=== PATIENT | male | born 1945 | race Caucasian/White ===

== ENCOUNTER 2023-10-13 16:45 | Inpatient (IN) | payer SELFPAY ==
[2023-10-13] VITALS (14 sets, daily range): BP systolic 123–179; BP diastolic 39–114; PULSE 72–118; RESP 14–22; TEMP 37; O2SAT 96
--- NOTE | 2023-10-13 17:00 | DI.CT_ITS ---
Exam(s) CT ABDOMEN PELVIS W EXAM: CT ABDOMEN PELVIS W CLINICAL HISTORY: patient is yellow, mass in RUQ. TECHNIQUE: Imaging Protocol: Axial computed tomography images with coronal and sagittal reformatted images were created and reviewed CONTRAST MATERIAL: Intravenous: Omnipaque-350 100cc Oral: None COMPARISON: No exams were available for comparison FINDINGS: VISUALIZED LUNG BASES: There moderate size bilateral pleural effusions, right larger than left with s ome atelectasis in the basal segments of both lower lobes evident.. ABDOMEN: There is abundant ascites in the abdomen and pelvis. GI: Lower esophagus and entire stomach wall are significantly-abnormally thickened, possibly diffusel y neoplastic, including linitis plastica. No evidence of small-bowel obstruction. LIVER: The left hepatic lobe appears somewhat enlarged and heterogeneous and with compression-occlusi on of the intrahepatic left portal vein. The middle and right intrahepatic portal veins patent. 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 There are some dilated intrahepatic ducts in the right lobe. Th ere is significant adenopathy in the retroperitoneum including the lesser sac and subhash hepatis and p eriaortic regions. Also retrocrural adenopathy noted on the right side. GALLBLADDER/BILIARY: Mild wall thickening without edema. CBD is not dilated. PANCREAS: Pancreatic body and tail appear unremarkable. There are lymph nodes around the pancreatic head. There does not appear to be a hypodense mass in the pancreatic head itself. SPLEEN: Spleen is not enlarged. No obvious intrasplenic lesions. There appears to be occlusion of t he splenic vein in the region of the splenic vein confluence. ADRENALS: There are adrenal nodules. KIDNEYS:No cysts evident. No solid renal masses. No calculi nor hydronephrosis.. ABDOMINAL AORTA: Calcified-atherosclerotic but not enlarged. There is critical stenosis versus occlu clifford at the origin of the celiac and superior mesenteric arteries. The left common iliac artery is o ccluded at its origin. Flow is reconstituted in the distal half of the left external iliac artery. Atherosclerotic disease evident in the right common iliac artery but without occlusion LYMPH NODES:Positive ucdromswmjdjnik-dhfy-etkqyy adenopathy. ABDOMINAL WALL: No evidence of significant anterior abdominal wall nor inguinal hernia. GI: There is no evidence of bowel obstruction, free air, nor abscess. PELVIS: GI: No evidence of appendicitis.No evidence of sigmoid diverticulitis. LYMPH NODES: There is no intrapelvic nor inguinal adenopathy. REPRODUCTIVE: Mildly low prostate. Seminal vesicles unremarkable. URINARY BLADDER: No calculi nor obvious masses evident OSSEOUS: There is a E nondisplaced fracture of the posterior aspect of the right 9th rib. IMPRESSION: 1. Multilevel ominous findings consistent with diffuse neoplastic disease in the abdomen. There is e xtensive retroperitoneal lymphadenopathy and ascites. 2. 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 Also occlusion of the splenic vein near the portal vein confluence and vascular compression a nd narrowing at multiple levels as described above. 3. Other findings as above. 4. 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 RADIATION OPTIMIZATION: All CT scans at this facility use at least one of these dose optimization te chniques: automated exposure control; mA and/or kV adjustment per patient size (includes targeted exa ms where dose is matched to clinical indication); or iterative reconstruction.
[2023-10-13] MEDS: Lactated Ringers 1,000 ML 1000 ML IV (17:15)
[2023-10-13 17:33] LABS: Abs Immature Grans 0.19 10^3/uL (0.0-0.06); Absolute Monocyte Count 1.41 10^3/uL (0.1-0.8); Basophils % 0.2; HCT 34.6 % (40.0-50.0); HGB 12.4 g/dL (13.5-17.5); Immature Grans % 0.7; Lymphocytes % 1.4; MCH 29.9 pg (27.0-33.0); MCHC 35.8 % (32.0-36.0); MCV 83 fL (80-95); Monocytes % 5.5; Neutrophils % 92.2; Platelet Count 510 10^3/uL (130-400); RBC 4.15 10^6/uL (4.36-5.78); RDW 16.6 % (11.8-14.1)
[2023-10-13 17:46] LABS: Absolute Basophil Count 0.05 10^3/uL (0.0-0.2); Absolute Lymphocyte Count 0.36 10^3/uL (1.2-3.4); Absolute Neutrophil Count 23.61 10^3/uL (1.2-6.7); INR 1.5 (0.9-1.1); PTT Activated 26.2 sec (23.6-32.8); Prothrombin Time 14.4 sec (9.1-11.1)
[2023-10-13 17:50] LABS: Diff Comment Agrees w/ Instrument; WBC 25.61 10^3/uL (4.4-10.8)
[2023-10-13 17:51] LABS: Poikilocytes 1+
[2023-10-13 17:56] LABS: ALT 384 U/L (16-63); AST 416 U/L (15-37); Albumin 2.2 g/dL (3.4-5.0); Anion Gap 10.8 mmol/L (3-11); BUN 19 mg/dL (7-18); CO2 24.2 mmol/L (21.0-32.0); CREATININE 0.7 mg/dL (0.70-1.30); Calcium 8.5 mg/dL (8.5-10.1); Chloride 93 mmol/L (98-107); Estimated GFR 93.73 (mL/min/1.73m2); Glucose 112 mg/dL (74-106); Lipase 66 U/L (16-77); Potassium 4.6 mmol/L (3.5-5.1); Sodium 128 mmol/L (136-145); Total Protein 6.3 g/dL (6.4-8.2)
[2023-10-13 17:57] LABS: Ammonia < 10 umol/L (11-32)
[2023-10-13 18:20] LABS: Alkaline Phosphatase 860 U/L (46-116); Bilirubin, Total 20.6 mg/dL (0.2-1.0); ETHANOL BLOOD < 3.0 mg/dL (<10)
[2023-10-13 18:21] LABS: Bilirubin, Direct 12.2 mg/dL (0.0-0.2)
[2023-10-13] MEDS: Omnipaque 350 MG/ML 100 ML BTL IJ (18:37)
[2023-10-13] MEDS: Normal Saline - Diluent 50 ML VIAL IJ (18:37)
[2023-10-13 18:50] LABS: Clarity Clear (Clear); Specific Gravity 1.025 (1.005-1.025)
[2023-10-13 18:52] LABS: Bacteria Negative HPF (Negative); Crystals Negative HPF (Negative); Epithelial Cells Negative HPF (Negative); Mucus Heavy (Negative); RBC 0-2 HPF (0-2)
[2023-10-13 18:53] LABS: Other Cells Few Transitional (Negative)
[2023-10-13 18:55] LABS: Casts 0-2 Coarse Granular LPF (Negative)
[2023-10-13 19:02] LABS: C & S Indicated? No
--- NOTE | 2023-10-13 19:29 | ED.GENADUL_ITS ---
Discharge Plan Disposition Patient Disposition: Admit to [facility] Condition: Serious Discharge Details Chief Complaint: GenMedical Clinical Impression: Transaminitis, Gastric cancer, Pancreatic cancer, Admission for end of life care, Hyperbilirubinemia Primary Care Provider: None,None ED Provider: Brett Robles Home Meds and New Rx's Prescriptions: No Action No Known Home Meds HPI General Date/Time Provider Initiated Documentation: 10/13/23 17:00 . HPI Narrative: 78-year-old male with no significant past medical history most likely secondary to him not seeing a doctor for years and years. Presents today for evaluation of not being able to sleep well. He states that over the last week or so he has had generalized mild abdominal pain. He does not have any other focal descriptors. He describes it in the epigastric region, it was gradual in onset. He admits to nausea but no vomiting. He denies diarrhea. He does not have much of an appetite. Patient is a tobacco user, he drank alcohol but stopped in 1988. He lives alone and is a self-described hermit. He does have a neighbor, Maria Teresa, who he sees regularly who brought him in today. Related Data Home Medications Medication Instructions Recorded Confirmed Unknown [No Known Home Meds] 10/13/23 10/13/23 Allergies Allergy/AdvReac Type Severity Reaction Status Date / Time No Known Allergies Allergy Unverified 10/13/23 17:00 General Stated Complaint: GenMedical CELE: 3 Review of Systems All systems reviewed & are unremarkable except as noted in HPI and below Exam Narrative Exam Narrative: 1.Const: Thin cachectic and yellow 2.Eyes: PERRL, no conjunctival injection, and symmetrical lids. Scleral icterus 3.ENT: Atraumatic external nose and ears. Dry MM. Neck: Symmetric, trachea midline, No thyromegaly. 4.CVS: +S1/S2, No murmurs or gallops. Peripheral pulses 2+ and equal in all extremities. Brisk capillary refill in all extremities. 5.RESP: Unlabored respiratory effort. Clear to auscultation bilaterally. No wheezes rales or rhonchi 6.GI: Soft, mildly distended, mild epigastric discomfort/tenderness 7.MSK: Normocephalic/Atraumatic, Extremities w/o deformity or ttp No cyanosis or clubbing, Normal movement of all extremities 8.Skin: Warm, Dry. No rashes or lesions. 9.Neuro: worship director II-XII grossly intact. Sensation grossly intact, no focal neurologic deficits. No asterixis 10.Psych: (AAO) x3. Appropriate mood and affect Course Vital Signs Vital signs: Vital Signs Temperature 37 C 10/13/23 16:49 Pulse 106 H 10/13/23 16:49 Respiratory Rate 22 10/13/23 16:49 Blood Pressure 163/114 H 10/13/23 16:49 Pulse Oximetry 96 10/13/23 16:49 Temperature 37 C 10/13/23 17:29 Temperature Source Skin 10/13/23 17:29 Pulse 91 H 10/13/23 18:01 Pulse 97 H 10/13/23 18:01 Respiratory Rate 18 10/13/23 18:01 Respiratory Effort Normal, Non-Labored 10/13/23 17:29 Respiratory Depth Normal 10/13/23 17:29 Respiratory Pattern Normal 10/13/23 17:29 Blood Pressure 147/39 H 10/13/23 18:01 Blood Pressure Mean 79 10/13/23 18:01 Pulse Oximetry 96 10/13/23 17:29 Oxygen Delivery Method Nasal Cannula 10/13/23 17:29 Pain Level 5 10/13/23 17:29 Lab/Test Results Lab/Test Results: 10/13/23 18:32 Urine - Reflex from Ua Urine Culture - Pending Laboratory Tests Range/Units 10/13/23 10/13/23 17:24 18:32 WBC (4.4-10.8) 10^3/uL 25.61 H* RBC (4.36-5.78) 10^6/uL 4.15 L Hgb (13.5-17.5) g/dL 12.4 L Hct (40.0-50.0) % 34.6 L MCV (80-95) fL 83 MCH (27.0-33.0) pg 29.9 MCHC (32.0-36.0) % 35.8 RDW (11.8-14.1) % 16.6 H Plt Count (130-400) 10^3/uL 510 H MPV (8.0-11.0) fL 11.0 Immature Gran % 0.7 Neutrophils % 92.2 Lymphocytes % 1.4 Monocytes % 5.5 Eosinophils % 0.0 Basophils % 0.2 Nucleated RBC % (0.0-0.3) % 0.0 Absolute Neutrophils (1.2-6.7) 10^3/uL 23.61 H Absolute Lymphocytes (1.2-3.4) 10^3/uL 0.36 L Absolute Monocytes (0.1-0.8) 10^3/uL 1.41 H Absolute Eosinophils (0.0-0.7) 10^3/uL 0.00 Absolute Basophils (0.0-0.2) 10^3/uL 0.05 RBC Morphology See Below Poikilocytosis 1+ PT (9.1-11.1) sec 14.4 H INR (0.9-1.1) 1.5 H APTT (23.6-32.8) sec 26.2 Sodium (136-145) mmol/L 128 L Potassium (3.5-5.1) mmol/L 4.6 Chloride (98-107) mmol/L 93 L Carbon Dioxide (21.0-32.0) mmol/L 24.2 Anion Gap (3-11) mmol/L 10.8 BUN (7-18) mg/dL 19 H Creatinine (0.70-1.30) mg/dL 0.7 Est GFR (CKD-EPI 2020) (mL/min/1.73m2) 93.73 Glucose (74-106) mg/dL 112 H Calcium (8.5-10.1) mg/dL 8.5 Total Bilirubin (0.2-1.0) mg/dL 20.6 H Conjugated Bilirubin (0.0-0.2) mg/dL 12.2 H AST (15-37) U/L 416 H ALT (16-63) U/L 384 H Alkaline Phosphatase (46-116) U/L 860 H Ammonia (11-32) umol/L < 10 L Total Protein (6.4-8.2) g/dL 6.3 L Albumin (3.4-5.0) g/dL 2.2 L Lipase (16-77) U/L 66 Urine Color (Yellow) Brown Urine Clarity (Clear) Clear Urine pH (5-8) Ur Specific Dana (1.005-1.025) 1.025 Urine Protein (Neg-Trace) mg/dL Urine Ketones (Negative) mg/dL Urine Blood (Negative) Urine Nitrite (Negative) Urine Bilirubin (Negative) Urine Urobilinogen (Up to 0.2) mg/dL Ur Leukocyte Esterase (Negative) Urine RBC (0-2) HPF 0-2 Urine WBC (0-5) HPF 5-10 Ur Epithelial Cells (Negative) HPF Negative Urine Crystals (Negative) HPF Negative Urine Bacteria (Negative) HPF Negative Urine Casts (Negative) LPF 0-2 Coarse Granular Urine Mucus (Negative) Heavy Urine Other (Negative) Few Transitional Ur Culture Indicated? No Urine Glucose (Negative) mg/dL Ethyl Alcohol (<10) mg/dL < 3.0 Medical Decision Making 78-year-old male with no significant past medical history most likely secondary to him not seeing a doctor for years and years. Presents today for evaluation of not being able to sleep well. He states that over the last week or so he has had generalized mild abdominal pain. He does not have any other focal descriptors. He describes it in the epigastric region, it was gradual in onset. He admits to nausea but no vomiting. He denies diarrhea. He does not have much of an appetite. Patient is a tobacco user, he drank alcohol but stopped in 1988. He lives alone and is a self-described hermit. He does have a neighbor, Maria Teresa, who he sees regularly who brought him in today. Exam demonstrates a cachectic appearing male, notably disheveled, scleral icterus notable jaundice. Mildly distended abdomen and mild epigastric discomfort. Symptoms are clearly concerning for potential malignancy, pancreatic stomach or hepatic. Will evaluate for these etiologies gently rehydrate and treat his pain monitor closely and reassess. 8 PM Laboratory workup shows an elevated white count of 25, hemoglobin of 12, no bandemia, notable left shift. Sodium 128, potassium normal, renal function good. Bilirubin is 20 with a conjugated bili of 12, notable transaminitis, elevated alk phos, normal ammonia and normal lipase level. CT scan shows evidence of multiple severe pathologies, significant cancer of the stomach pancreas and esophagus, biliary complications as well. Uncertain as to what the original etiology is. Severe stenosis of multiple vessels, gallbladder wall thickening, bone metastases, and pleural effusions. Signs and symptoms are concerning for severe cancer and metastatic disease, hepatic and biliary complications, multiple vascular complications. I had a long sitdown conversation with the patient and discussed the findings, potential prognosis, and treatment options. We discussed surgery chemotherapy radiation, likelihood of success, alternative therapies, including but not limited to palliative and hospice care. At this time patient states that I do not want any of those surgeries, I just want pain pills to feel better and to go home. I discussed the case with his friend/neighbor Maria Teresa, she states that he does not have running water, he heats only with wood, but otherwise lives totally alert. At this time we will admit the patient here for pain management, palliative and hospice care consult, and mobilization of resources to facilitate his desire to be at home. Asked the patient where he would prefer to have his life and, and he states that that is home. He does not have children, but he does have 1 sister. He wants to speak with Maria Teresa now currently. I did offer to contacted the hospital engraver ornamental design and he has declined. Discussed the case with the hospitalist Dr. Novak, he agrees with the assessment and plan. I have extensively reviewed the treatment plan with the patient. I have addressed all patient concerns at this time. I have also discussed the plan with the admitting physician and they agree with the current assessment and plan and have agreed to assume responsibility for the patient. All parties demonstrate verbal understanding and agreement with our assessment and plan at this time. The documentation in this chart was dictated using [employer] dictation software. Please excuse any dictation errors. FINDINGS: Lungs: Moderate atelectasis is noted in both lower lobes, right greater than left. Pleural spaces: Moderate pleural effusions layer dependently. Esophagus: Wall thickening is noted in the distal esophagus. Liver: The borders of the liver are smooth. There is decreased enhancement in the left liver, following vascular anatomy. Gallbladder and bile ducts: The gallbladder velez are mildly thickened. There are no calcified stones. The extrahepatic bile ducts are not dilated. Mild intrahepatic biliary ductal dilatation is observed. Pancreas: Mild fat stranding is noted around the pancreas. The pancreatic duct is not dilated. Spleen: The spleen is normal and measures 8.2 cm in length. Adrenal glands: Moderate adrenal hypertrophy is observed. Kidneys and ureters: The kidneys enhance symmetrically. There is no hydronephrosis. There is no renal mass. Mild fat stranding is noted in the perinephric fat spaces. Nodular thickening of the perirenal fascia is observed bilaterally; see customer success representative axial image 33 series 4. The ureters are not dilated. No ureteral stones are observed. Stomach and bowel: Moderate wall thickening is noted in the stomach, primarily in the body of the stomach. Mild fluid and fat stranding noted around the stomach. Wall thickening is noted in the duodenum, with additional fat stranding. Mild wall thickening is present throughout the jejunum and ileum. There is no abnormal small bowel distension. Most of the colon is collapsed, with mild gas and stool scattered in the colon. Wall thickening is observed in the hepatic flexure of the colon. Appendix: The appendix is normal. Intraperitoneal space: Moderate ascites. No abscess. Omental tumor not excluded. Vasculature: There is no portal venous thrombosis. Severe narrowing of the main portal vein is observed in subhash hepatis, constriction from presumed tumor; see axial image 22 series 4. Severe narrowing or occlusion of the left portal vein is observed, likely related to tumor; see axial image 17 series 4. The abdominal aorta is moderately calcified, negative for aneurysm or stenosis. Severe stenosis is observed in the celiac trunk and the superior mesenteric artery, without gross occlusion. Narrowing is suspected in the right renal artery. Moderate plaque is observed in the common iliac arteries. The left common iliac artery is occluded. Proximal left external iliac artery is occluded. Reconstitution is observed in the common femoral artery, likely with retrograde flow into the external iliac artery. Extrinsic compression on the inferior vena cava is noted near the liver; see axial image 24 series 4. Severe stenosis or occlusion of the renal veins is observed at this level. Numerous venous collaterals surround the stomach. Lymph nodes: Multiple enlarged retroperitoneal lymph nodes or other masses are present. Right retrocrural lymphadenopathy is observed. The lymphadenopathy is confluency and difficult to measure. A subhash hepatis lymph node measures 2.1 x 3.6 cm, axial image 23 series 4. An aortocaval lymph node measures 2.2 x 1.6 cm, axial image 26 series 4. Urinary bladder: Unremarkable. Reproductive: Mildly large prostate. Bones/joints: Negative for compression fracture. Multilevel degenerative disc disease and facet arthropathy noted. No specific endplate erosions are observed. No destructive or expansile bony lesions are observed. A sclerotic lesion is noted in the left iliac crest adjacent to the sacroiliac joint, 1.2 cm on axial image 50 series 4. An old partially healed rib fracture is noted at the posterior right 9th rib. Soft tissues: Mild body wall edema. No significant abdominal wall hernia. IMPRESSION: 1. Extensive retroperitoneal lymphadenopathy suspicious for neoplasm. 2. Primary tumor source suspected from the stomach or esophagus. Pancreatic or biliary sources considered. Primary lymphoproliferative disease or other primary tumor sites may be considered. 3. Extrinsic compression causes vascular narrowing at multiple sites. 4. Severe stenosis, celiac trunk. 5. Severe stenosis, superior mesenteric artery. 6. Severe stenosis, inferior vena cava. 7. Severe stenosis or occlusion, right renal vein. 8. Severe stenosis, left renal vein. SHAKIRA KAUFMAN Preliminary Radiology Report EMERGENCY ROOM PHYSICIAN ASSISTANT (QA) DISCREPANCY? If there is a discrepancy between the preliminary and final interpretation, please notify [email or web address] via [email or web address]. If you do not have access to our QA portal, call our QA team at [phone] CONFIDENTIALITY STATEMENT This report is intended only for the use of the referring physician, and only in accordance with law, If you received this in error, call [phone] Page 3 of 3 9. Severe stenosis, main portal vein. 10. Severe stenosis or occlusion, left portal vein. 11. Mild intrahepatic biliary ductal dilatation. Probable tumor compression or involvement of the extrahepatic bile ducts. 12. Moderate arteriosclerotic vascular disease. 13. Occlusion of the left common/external iliac arteries, likely from arteriosclerotic disease. 14. Generalized bowel wall thickening, likely from mesenteric vascular congestion. Enterocolitis considered. 15. Gallbladder wall thickening, likely from vascular congestion. Gallbladder neoplasm may also be considered. 16. Moderate bilateral pleural effusions with atelectasis. 17. Moderate ascites. 18. Possible bone metastasis at the left iliac crest. 19. Additional findings as described. Thank you for allowing us to participate in the care of your patient. Dictated and Authenticated by: Kaleb Doe MD 10/13/2023 7:40 PM Eastern Time ([place] & [place]) Quality:SDOH Health Related Social Needs: Health related social needs inadequate housing PFSH All Active Problems (Updated 10/13/23 @ 20:22 by Brett Robles DO) Hyperbilirubinemia (Acute) Admission for end of life care (Acute) Pancreatic cancer (Acute) Gastric cancer (Acute) Transaminitis (Acute) Social History Smoking/Tobacco Use Status: Former Tobacco Use Smoking risk assessment performed?: Yes Alcohol Intake: former Drug use: Occasionally Substance use type: marijuana
--- NOTE | 2023-10-13 19:41 | DI.VRAD_ITS ---
Addendum created by Kaleb Doe MD on 10/13/2023 7:42:09 PM EDT: Findings were discussed with JENNA OLIVEROS at 10/13/2023 7:30 p.m. EDT. Initial report created on 10/13/2023 7:40:02 PM EDT: PROCEDURE INFORMATION: Exam: CT Abdomen And Pelvis With Contrast Exam date and time: 10/13/2023 6:37 PM Age: 78 years old Clinical indication: Other: Patient is yellow, mass in ruq TECHNIQUE: Imaging protocol: Computed tomography of the abdomen and pelvis with contrast. Contrast material: 350; Contrast volume: 100 ml; Contrast route: INTRAVENOUS (IV); COMPARISON: No relevant prior studies available. FINDINGS: Lungs: Moderate atelectasis is noted in both lower lobes, right greater than left. Pleural spaces: Moderate pleural effusions layer dependently. Esophagus: Wall thickening is noted in the distal esophagus. Liver: The borders of the liver are smooth. There is decreased enhancement in the left liver, following vascular anatomy. Gallbladder and bile ducts: The gallbladder velez are mildly thickened. There are no calcified stones. The extrahepatic bile ducts are not dilated. Mild intrahepatic biliary ductal dilatation is observed. Pancreas: Mild fat stranding is noted around the pancreas. The pancreatic duct is not dilated. Spleen: The spleen is normal and measures 8.2 cm in length. Adrenal glands: Moderate adrenal hypertrophy is observed. Kidneys and ureters: The kidneys enhance symmetrically. There is no hydronephrosis. There is no renal mass. Mild fat stranding is noted in the perinephric fat spaces. Nodular thickening of the perirenal fascia is observed bilaterally; see logistics service representative axial image 33 series 4. The ureters are not dilated. No ureteral stones are observed. Stomach and bowel: Moderate wall thickening is noted in the stomach, primarily in the body of the stomach. Mild fluid and fat stranding noted around the stomach. Wall thickening is noted in the duodenum, with additional fat stranding. Mild wall thickening is present throughout the jejunum and ileum. There is no abnormal small bowel distension. Most of the colon is collapsed, with mild gas and stool scattered in the colon. Wall thickening is observed in the hepatic flexure of the colon. Appendix: The appendix is normal. Intraperitoneal space: Moderate ascites. No abscess. Omental tumor not excluded. Vasculature: There is no portal venous thrombosis. Severe narrowing of the main portal vein is observed in subhash hepatis, constriction from presumed tumor; see axial image 22 series 4. Severe narrowing or occlusion of the left portal vein is observed, likely related to tumor; see axial image 17 series 4. The abdominal aorta is moderately calcified, negative for aneurysm or stenosis. Severe stenosis is observed in the celiac trunk and the superior mesenteric artery, without gross occlusion. Narrowing is suspected in the right renal artery. Moderate plaque is observed in the common iliac arteries. The left common iliac artery is occluded. Proximal left external iliac artery is occluded. Reconstitution is observed in the common femoral artery, likely with retrograde flow into the external iliac artery. Extrinsic compression on the inferior vena cava is noted near the liver; see axial image 24 series 4. Severe stenosis or occlusion of the renal veins is observed at this level. Numerous venous collaterals surround the stomach. Lymph nodes: Multiple enlarged retroperitoneal lymph nodes or other masses are present. Right retrocrural lymphadenopathy is observed. The lymphadenopathy is confluency and difficult to measure. A subhash hepatis lymph node measures 2.1 x 3.6 cm, axial image 23 series 4. An aortocaval lymph node measures 2.2 x 1.6 cm, axial image 26 series 4. Urinary bladder: Unremarkable. Reproductive: Mildly large prostate. Bones/joints: Negative for compression fracture. Multilevel degenerative disc disease and facet arthropathy noted. No specific endplate erosions are observed. No destructive or expansile bony lesions are observed. A sclerotic lesion is noted in the left iliac crest adjacent to the sacroiliac joint, 1.2 cm on axial image 50 series 4. An old partially healed rib fracture is noted at the posterior right 9th rib. Soft tissues: Mild body wall edema. No significant abdominal wall hernia. IMPRESSION: 1. Extensive retroperitoneal lymphadenopathy suspicious for neoplasm. 2. Primary tumor source suspected from the stomach or esophagus. Pancreatic or biliary sources considered. Primary lymphoproliferative disease or other primary tumor sites may be considered. 3. Extrinsic compression causes vascular narrowing at multiple sites. 4. Severe stenosis, celiac trunk. 5. Severe stenosis, superior mesenteric artery. 6. Severe stenosis, inferior vena cava. 7. Severe stenosis or occlusion, right renal vein. 8. Severe stenosis, left renal vein. 9. Severe stenosis, main portal vein. 10. Severe stenosis or occlusion, left portal vein. 11. Mild intrahepatic biliary ductal dilatation. Probable tumor compression or involvement of the extrahepatic bile ducts. 12. Moderate arteriosclerotic vascular disease. 13. Occlusion of the left common/external iliac arteries, likely from arteriosclerotic disease. 14. Generalized bowel wall thickening, likely from mesenteric vascular congestion. Enterocolitis considered. 15. Gallbladder wall thickening, likely from vascular congestion. Gallbladder neoplasm may also be considered. 16. Moderate bilateral pleural effusions with atelectasis. 17. Moderate ascites. 18. Possible bone metastasis at the left iliac crest. 19. Additional findings as described. Dictated and Authenticated by: Kaleb Doe MD. Ordering:KAZ West MD
[2023-10-13] MEDS: MORPHine 4 MG/ML SYR IVP (20:04)
--- NOTE | 2023-10-13 20:24 | W.PM.HP.N ---
Date of service: 10/13/23 Time of Service: 20:24 Assessment and Plan Assessment and plan (1) Abdominal malignancy: Start date: 10/13/23 Status: Acute Assessment and plan: This is a 78-year-old gentleman presenting with abdominal pain and anorexia along with dysphagia for 2 months with his epigastric pain working just after early September when the eclipse of the sun occurred. He has had gradual weight loss and gradual onset of jaundice noticed by his neighbor. He does live alone and is apartment not seen a physician for years. He is on no medical care. Imaging in the ED did reveal a large amount of tumor load in the area of his stomach, esophagus and pancreas as well as gallbladder. He does have obstructive jaundice increased liver function test. He wants no interventions but was willing to stay for gentle IV hydration and pain management. Long-term he wants to be on hospice. This may be a problem but patient lives alone. He is a DNR. Hospice was consulted. (2) Obstructive jaundice due to cancer: Start date: 10/13/23 Status: Acute Assessment and plan: Secondary to significant temporal lobe with metastases to bone as well though is not complaining of bone pain. Pain management and diet as tolerated. Primary most likely is esophagus or stomach but could be pancreas and/or gallbladder. Patient does not want diagnostic testing or intervention. He is clear of mind and is making a thoughtful decision. He is a DNR/DNI. (3) Transaminitis: Start date: 10/13/23 Status: Acute Assessment and plan: Secondary to obstructing tumor. Trend labs though this will be done long-term the patient will be on hospice. (4) Hyponatremia: Start date: 10/13/23 Status: Acute Assessment and plan: IV hydration overnight with medical decision making as to comfort measures and placement for hospice. He may not be able to return home alone unless he has resources with possibly being his neighbor and his sister though he states his sister is not doing well and lives in [place]. He is close to his sister. History of Present Illness History of Present Illness Chief Complaint: Epigastric abdominal pain since early September Narrative: This is a 78-year-old male patient who presented to the ED for that he was not sleeping well because of abdominal pain. After the solar eclipse he began to have epigastric pain which worsened with increasing anorexia. He has been losing weight slowly over the last couple of years with no acceleration according to patient. He lives alone and has not seek medical care and has not seen a physician for years and is on no medical therapy. He does have a neighbor who noticed that he was turning yellow and did prompt him to be evaluated whenever he was having increasing pain. He does have some slight dysphagia for 2 months but no vomiting. His bowels been moving. As stated, he is basically a hermit and has only a neighbor with whom he interacts. He does have a sister who lives in [place] but is not well. He does not wish to not have aggressive medical care with his newfound abdominal mass which is causing his obstructive jaundice and pain. He does wish to be on hospice but lives alone which may be a problem. He is able to give history and is not having any confusion. At the time I saw the patient he was comfortable and not having significant pain. He is a DNR/DNI. Review of Systems Narrative: 13 point review of systems otherwise unrevealing or stable. PFS All Active Problems (Updated 10/13/23 @ 20:28 by Jah Novak) Hyponatremia (Acute) Obstructive jaundice due to cancer (Acute) Abdominal malignancy (Acute) Hyperbilirubinemia (Acute) Admission for end of life care (Acute) Pancreatic cancer (Acute) Gastric cancer (Acute) Transaminitis (Acute) Social History Smoking/Tobacco Use Status: Former Tobacco Use Smoking risk assessment performed?: Yes Alcohol Intake: former Drug use: Occasionally Substance use type: marijuana Housing: house Meds Allergies and Home Medications Allergies Allergy/AdvReac Type Severity Reaction Status Date / Time No Known Allergies Allergy Unverified 10/13/23 17:00 Home Medications Medication Instructions Recorded Confirmed Type Unknown [No Known Home Meds] 10/13/23 10/13/23 History Exam Narrative Exam Narrative: General: Patient appears appropriate for age and is in no acute distress. He is thin and almost cachectic. He is alert and oriented x 3. He did not complain of abdominal pain to the time of my exam. HEENT: Normocephalic, eyes with pupils equal and reactive to light symmetrically, extraocular movement intact and sclera icteric. Oropharynx with dry mucosa and patient is edentulous. Neck: Supple without JVD. Back: Slightly kyphotic without CVA tenderness. Lungs: Bronchovesicular breath sounds diffusely with no focalizing rales or rhonchi. Clear to auscultation with fair aeration. Heart: Regular rate and rhythm with no murmurs or gallops appreciated. Abdomen: Protuberant, soft and no palpable mass or hepatosplenomegaly without guarding or rebound. Bowel sounds positive in all quadrants. Genitalia/rectal: Exam deferred. Extremities: Without clubbing, cyanosis or pitting edema. Fair capillary refill. Skin: Darkly tanned diffusely and diffusely jaundice, rough texture and decreased turgor. Warm and dry. Neuro: Cranial nerves II through XII gross intact, no focal motor deficits and no tremor. Psych: Normal affect and mood. No abnormal thought processes. Remote and recent memory grossly intact. Patient prefers to be alone but seemed comfortable with this lifestyle. Results Imaging Imaging Studies: Exam: CT Abdomen And Pelvis With Contrast Exam date and time: 10/13/2023 6:37 PM Age: 78 years old Clinical indication: Other: Patient is yellow, mass in ruq TECHNIQUE: Imaging protocol: Computed tomography of the abdomen and pelvis with contrast. Contrast material: 350; Contrast volume: 100 ml; Contrast route: INTRAVENOUS (IV); COMPARISON: No relevant prior studies available. FINDINGS: Lungs: Moderate atelectasis is noted in both lower lobes, right greater than left. Pleural spaces: Moderate pleural effusions layer dependently. Esophagus: Wall thickening is noted in the distal esophagus. Liver: The borders of the liver are smooth. There is decreased enhancement in the left liver, following vascular anatomy. Gallbladder and bile ducts: The gallbladder velez are mildly thickened. There are no calcified stones. The extrahepatic bile ducts are not dilated. Mild intrahepatic biliary ductal dilatation is observed. Pancreas: Mild fat stranding is noted around the pancreas. The pancreatic duct is not dilated. Spleen: The spleen is normal and measures 8.2 cm in length. Adrenal glands: Moderate adrenal hypertrophy is observed. Kidneys and ureters: The kidneys enhance symmetrically. There is no hydronephrosis. There is no renal mass. Mild fat stranding is noted in the perinephric fat spaces. Nodular thickening of the perirenal fascia is observed bilaterally; see registered representative axial image 33 series 4. The ureters are not dilated. No ureteral stones are observed. Stomach and bowel: Moderate wall thickening is noted in the stomach, primarily in the body of the stomach. Mild fluid and fat stranding noted around the stomach. Wall thickening is noted in the duodenum, with additional fat stranding. Mild wall thickening is present throughout the jejunum and ileum. There is no abnormal small bowel distension. Most of the colon is collapsed, with mild gas and stool scattered in the colon. Wall thickening is observed in the hepatic flexure of the colon. Appendix: The appendix is normal. Intraperitoneal space: Moderate ascites. No abscess. Omental tumor not excluded. Vasculature: There is no portal venous thrombosis. Severe narrowing of the main portal vein is observed in subhash hepatis, constriction from presumed tumor; see axial image 22 series 4. Severe narrowing or occlusion of the left portal vein is observed, likely related to tumor; see axial image 17 series 4. The abdominal aorta is moderately calcified, negative for aneurysm or stenosis. Severe stenosis is observed in the celiac trunk and the superior mesenteric artery, without gross occlusion. Narrowing is suspected in the right renal artery. Moderate plaque is observed in the common iliac arteries. The left common iliac artery is occluded. Proximal left external iliac artery is occluded. Reconstitution is observed in the common femoral artery, likely with retrograde flow into the external iliac artery. Extrinsic compression on the inferior vena cava is noted near the liver; see axial image 24 series 4. Severe stenosis or occlusion of the renal veins is observed at this level. Numerous venous collaterals surround the stomach. Lymph nodes: Multiple enlarged retroperitoneal lymph nodes or other masses are present. Right retrocrural lymphadenopathy is observed. The lymphadenopathy is confluency and difficult to measure. A subhash hepatis lymph node measures 2.1 x 3.6 cm, axial image 23 series 4. An aortocaval lymph node measures 2.2 x 1.6 cm, axial image 26 series 4. Urinary bladder: Unremarkable. Reproductive: Mildly large prostate. Bones/joints: Negative for compression fracture. Multilevel degenerative disc disease and facet arthropathy noted. No specific endplate erosions are observed. No destructive or expansile bony lesions are observed. A sclerotic lesion is noted in the left iliac crest adjacent to the sacroiliac joint, 1.2 cm on axial image 50 series 4. An old partially healed rib fracture is noted at the posterior right 9th rib. Soft tissues: Mild body wall edema. No significant abdominal wall hernia. IMPRESSION: 1. Extensive retroperitoneal lymphadenopathy suspicious for neoplasm. 2. Primary tumor source suspected from the stomach or esophagus. Pancreatic or biliary sources considered. Primary lymphoproliferative disease or other primary tumor sites may be considered. 3. Extrinsic compression causes vascular narrowing at multiple sites. 4. Severe stenosis, celiac trunk. 5. Severe stenosis, superior mesenteric artery. 6. Severe stenosis, inferior vena cava. 7. Severe stenosis or occlusion, right renal vein. 8. Severe stenosis, left renal vein. 9. Severe stenosis, main portal vein. 10. Severe stenosis or occlusion, left portal vein. 11. Mild intrahepatic biliary ductal dilatation. Probable tumor compression or involvement of the extrahepatic bile ducts. 12. Moderate arteriosclerotic vascular disease. 13. Occlusion of the left common/external iliac arteries, likely from arteriosclerotic disease. 14. Generalized bowel wall thickening, likely from mesenteric vascular congestion. Enterocolitis considered. 15. Gallbladder wall thickening, likely from vascular congestion. Gallbladder neoplasm may also be considered. 16. Moderate bilateral pleural effusions with atelectasis. 17. Moderate ascites. 18. Possible bone metastasis at the left iliac crest. 19. Additional findings as described. Labs 10/13/23 17:24 10/13/23 17:24 Labs: Laboratory Results - last 24 hr 10/13/23 10/13/23 17:24 18:32 WBC 25.61 H* RBC 4.15 L Hgb 12.4 L Hct 34.6 L MCV 83 MCH 29.9 MCHC 35.8 RDW 16.6 H Plt Count 510 H MPV 11.0 Immature Gran % 0.7 Neutrophils % 92.2 Lymphocytes % 1.4 Monocytes % 5.5 Eosinophils % 0.0 Basophils % 0.2 Nucleated RBC % 0.0 Absolute Neutrophils 23.61 H Absolute Lymphocytes 0.36 L Absolute Monocytes 1.41 H Absolute Eosinophils 0.00 Absolute Basophils 0.05 RBC Morphology See Below Poikilocytosis 1+ PT 14.4 H INR 1.5 H APTT 26.2 Sodium 128 L Potassium 4.6 Chloride 93 L Carbon Dioxide 24.2 Anion Gap 10.8 BUN 19 H Creatinine 0.7 Est GFR (CKD-EPI 2020) 93.73 Glucose 112 H Calcium 8.5 Total Bilirubin 20.6 H Conjugated Bilirubin 12.2 H AST 416 H ALT 384 H Alkaline Phosphatase 860 H Ammonia < 10 L Total Protein 6.3 L Albumin 2.2 L Lipase 66 Urine Color Brown Urine Clarity Clear Urine pH Ur Specific [place] 1.025 Urine Protein Urine Ketones Urine Blood Urine Nitrite Urine Bilirubin Urine Urobilinogen Ur Leukocyte Esterase Urine RBC 0-2 Urine WBC 5-10 Ur Epithelial Cells Negative Urine Crystals Negative Urine Bacteria Negative Urine Casts 0-2 Coarse Granular Urine Mucus Heavy Urine Other Few Transitional Ur Culture Indicated? No Urine Glucose Ethyl Alcohol < 3.0 Last Vital Signs Temp 37 C 10/13/23 17:29 Pulse 91 H 10/13/23 18:01 Resp 18 10/13/23 18:01 BP 147/39 H 10/13/23 18:01 Pulse Ox 96 10/13/23 17:29 Time Spent Time spent with Patient: >75 minutes Time was spent: preparing to see the patient(eg.review tests), obtaining and/or reviewing separately otained hiistory, ordering medications,tests, procedures, referring, communicating with other health home care attendant, indepentently interpreting results, counseling the patient and care coordination
[2023-10-13] MEDS: Normal Saline 1,000 ML 125 ML IV (22:16)
[2023-10-13 23:09] LABS: INR 1.4 (0.9-1.1); PTT Activated 26.9 sec (23.6-32.8); Prothrombin Time 13.9 sec (9.1-11.1)
[2023-10-14] VITALS (7 sets, daily range): BP systolic 114–152; BP diastolic 62–84; PULSE 92–123; RESP 11–24; TEMP 35.9–36.7; O2SAT 92–96
[2023-10-14 06:51] LABS: HGB 10.8 g/dL (13.5-17.5); MCH 30.4 pg (27.0-33.0); MCV 85 fL (80-95); MPV 11.1 fL (8.0-11.0); Platelet Count 474 10^3/uL (130-400); RBC 3.55 10^6/uL (4.36-5.78); RDW 17.5 % (11.8-14.1); RDW-SD 48.3 fL; WBC 23.01 10^3/uL (4.4-10.8)
[2023-10-14 06:55] LABS: INR 1.4 (0.9-1.1); Prothrombin Time 14.1 sec (9.1-11.1)
[2023-10-14 07:24] LABS: ALT 356 U/L (16-63); AST 370 U/L (15-37); Albumin 1.8 g/dL (3.4-5.0); Alkaline Phosphatase 878 U/L (46-116); Anion Gap 9.1 mmol/L (3-11); BUN 18 mg/dL (7-18); CO2 24.9 mmol/L (21.0-32.0); CREATININE 0.6 mg/dL (0.70-1.30); Calcium 7.9 mg/dL (8.5-10.1); Chloride 96 mmol/L (98-107); Glucose 90 mg/dL (74-106); Potassium 4.5 mmol/L (3.5-5.1); Sodium 130 mmol/L (136-145); Total Protein 5.4 g/dL (6.4-8.2)
--- NOTE | 2023-10-14 08:43 | INITIAL_ITS ---
Date of service: 10/14/23 Care Management Initial Assmt Initial Assessment REASON FOR HOSPITALIZATION:: Abdominal malignancy with obstructive jaundice PREVIOUS FUNCTIONAL STATUS/SOCIAL/FAMILY SUPPORTS:: Juve lives in [facility] where he has lived in his home for 30 years but 50 years in the same area. He has a friend Maria Teresa who is his neighbor for the last 30 years. He has a sister who he is two years apart in age with that he stays connected to by writing letters and talking on the phone. She lives in [place]. Juve does not receive any community services and is independent at baseline. He is able to perform all of his own ADLs. CURRENT FUNCTIONAL STATUS:: Juve was lying in bed when meeting with CM. He reports his neighbor Maria Teresa brought him into the hospital as she was concerned about him and often checks up on him. He reports receiving a call from his sister this morning. He shares he looks forward to knowing what is going on with consults that were ordered and hoped to hear today. CM called Hospice and messaged Palliative Care for consult. ADVANCE DIRECTIVES:: None on file Has patient been provided with info about the portal/API?: Yes Did the patient sign up for the portal?: No CODE STATUS:: DNR/DNI INSURANCE COVERAGE / FINANCIAL ISSUES:: Self Pay CURRENT HOME/COMMUNITY SERVICES/EQUIPMENT:: None PRIMARY CARE PHYSICIAN:: No PCP PATIENT/FAMILY EDUCATION NEEDS:: Review discharge instructions, discussion of Ask Me Three ANTICIPATED BARRIERS TO DISCHARGE:: Home on Hospice no caregiver at home TRANSPORTATION:: Via private vehicle by family PLAN:: Juve will discharge home when medically cleared. He will transport via private vehicle by family. He will be assigned a T-Doc upon discharge for follow up care. CM will continue to follow to assess care needs and assist in coordination of services with Hospice and Palliative Care. PFSH All Active Problems (Updated 10/16/23 @ 08:38 by Alexandra Herndon MD, [place]) Counseling regarding advanced care planning and goals of care (Acute) Ascites, malignant (Acute) Leukocytosis, unspecified (Acute) Hyponatremia (Acute) Obstructive jaundice due to cancer (Acute) Abdominal malignancy (Acute) Hyperbilirubinemia (Acute) Admission for end of life care (Acute) Pancreatic cancer (Acute) Gastric cancer (Acute) Transaminitis (Acute) Social History Smoking/Tobacco Use Status: Former Tobacco Use Smoking risk assessment performed?: Yes Alcohol Intake: former Drug use: Occasionally Substance use type: marijuana Housing: house SDOH(Care Management) Screening Will the Patient Participate in the Screening?: Yes Do you worry about having a steady place to live?: no Problems where you live: no known problems In the past 12 months, have you had to go without electric, gas, oil or water in your home?: no Have you or anyone in your house had to go without enough food to eat?: no Has lack of transportation kept you from medical appointments or from doing things needed for daily living?: no Has anyone in your support network made you feel unsafe for any reason?: no Social Determinants of Health Comments(SDOH Details): Patient has limited running water and plumbing; patient states has electricity, running water in basement with drainage. Patient uses wood for heat and goes grocery shopping with neighbor Oreland. Health Related Social Needs Health related social needs details: Patient states he gave up his license a few years ago due to impaired vision and failing health. Patient is in the process of filling out living will
[2023-10-14] MEDS: Normal Saline 1,000 ML 125 ML IV ×2 (10:03→20:30)
[2023-10-14] MEDS: MORPHine 4 MG/ML SYR IVP ×5 (14:15→22:48)
--- NOTE | 2023-10-14 14:32 | PGE_ITS ---
Date of Service Date of service: 10/14/23 Time of Service: 14:32 Assessment and Plan Assessment and plan (1) Abdominal malignancy: Status: Acute Assessment and plan: likely GI malignancy either gastric or esophageal but I would a favor gastric w/ local invasion of liver causing obstructive jaundice, also w/ adrenal and bone mets (left iliac); no tumor seen in the pancreas itself. patient wants symptom control but not interested in cancer treatment. morphine ordered by the admitting hospitalist, I have added APAP to his regimen for more mild pain but have to use cautiously given his liver abnormalities. I have ordered compazine for his nausea. I have requested palliative care consult and Dr. Novak has requested hospice consult as well, although the patient lives on his own w/ no local family support. (2) Obstructive jaundice due to cancer: Status: Acute (3) Leukocytosis, unspecified: Status: Acute Assessment and plan: likely reactive leukocytosis from his cancer, no fevers and no evidence for acute infection Qualifiers: Leukocytosis type: unspecified Qualified Code(s): D72.829 - Elevated white blood cell count, unspecified (4) Hyponatremia: Status: Acute Assessment and plan: being corrected w/ NS iv fluids., monitor labs (5) Ascites, malignant: Status: Acute Subjective Subjective Interval history since last seen: Juve presented last night to the ED d/t abdominal pain, nausea and poor appetite. Patient has not seen any medical providers in years. His neighbor convinced him to come to the E.D. last night as the patient has not been able to keep down any food. Evaluation in the ED revealed him to be jaundiced and icteric w/ abdominal distension. Workup included routine labs including CMP, CBC, prothrombin time, activated PTT, UA. This demonstrated leukocytosis of 24,000, mild NC/NC anemia Hb 12.4, platelets 510,000, hyponatremia 128, and elevated LFT: AST 416, ALT 384, alk phosphatase 860, total bilirubin 20.6, direct bili 12.2, total protein 6.3, albumin 2.2, ammonia level <10, protime 14.4 w/ INR 1.5, aPTT 26.2, lipase normal at 66. Imaging included CT abdomen and pelvis demonstrated diffuse thickening of the entire stomach wall and lower esophagus w/ a mass in the left lobe of the liver, adrenal mets and multiple retroperitoneal adenopathy and ascites. 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 He also has occlusion of the splenic vein. Per Dr. Novak' interview w/ the patient, the patient does not want to pursue cancer workup or treatment. He is here for pain control. Hospice and palliative care will be requested. Exam Narrative Exam Narrative: Mr. Shaffer is very jaundiced, icteric, he is alert, nursing had me come see him urgently as he allegedly had emesis of blood. However this was not witnessed by anyone and when the patient was questioned about this he says that he had a red popcicle and he threw this up. HEENT: jaundices and icteric, oropharynx: tongue has red appearance to the surface but I saw no clots or acute blood, although I noted on his gown he had a bright red stain on the upper part of his top gown. I could not tell for certain if this was blood. I did not see any epistaxis Lungs: clear anteriorly Heart: RRR Abdomen: distended, firm but not rigid, + fluid wave, no rebound tenderness or guarding but he does note some mild abdominal pain w/ palpation over the RUQ and epigastrium, liver is palpably enlarged. Extremities: no cyanosis, skin is jaundiced, no peripheral edema Objective Last Vital Signs Temp 36.4 C L 10/14/23 11:06 Pulse 98 H 10/14/23 11:06 Resp 18 10/14/23 11:06 BP 152/76 H 10/14/23 11:06 Pulse Ox 94 10/14/23 11:06 Laboratory Results - last 24 hr 10/13/23 10/13/23 10/13/23 17:24 18:32 22:43 WBC 25.61 H* RBC 4.15 L Hgb 12.4 L Hct 34.6 L MCV 83 MCH 29.9 MCHC 35.8 RDW 16.6 H Plt Count 510 H MPV 11.0 Immature Gran % 0.7 Neutrophils % 92.2 Lymphocytes % 1.4 Monocytes % 5.5 Eosinophils % 0.0 Basophils % 0.2 Nucleated RBC % 0.0 Absolute Neutrophils 23.61 H Absolute Lymphocytes 0.36 L Absolute Monocytes 1.41 H Absolute Eosinophils 0.00 Absolute Basophils 0.05 RBC Morphology See Below Poikilocytosis 1+ PT 14.4 H 13.9 H INR 1.5 H 1.4 H APTT 26.2 26.9 Sodium 128 L Potassium 4.6 Chloride 93 L Carbon Dioxide 24.2 Anion Gap 10.8 BUN 19 H Creatinine 0.7 Est GFR (CKD-EPI 2020) 93.73 Glucose 112 H Calcium 8.5 Total Bilirubin 20.6 H Conjugated Bilirubin 12.2 H AST 416 H ALT 384 H Alkaline Phosphatase 860 H Ammonia < 10 L Total Protein 6.3 L Albumin 2.2 L Lipase 66 Urine Color Brown Urine Clarity Clear Urine pH Ur Specific Paden 1.025 Urine Protein Urine Ketones Urine Blood Urine Nitrite Urine Bilirubin Urine Urobilinogen Ur Leukocyte Esterase Urine RBC 0-2 Urine WBC 5-10 Ur Epithelial Cells Negative Urine Crystals Negative Urine Bacteria Negative Urine Casts 0-2 Coarse Granular Urine Mucus Heavy Urine Other Few Transitional Ur Culture Indicated? No Urine Glucose Ethyl Alcohol < 3.0 10/14/23 06:30 WBC 23.01 H RBC 3.55 L Hgb 10.8 L Hct 30.0 L MCV 85 MCH 30.4 MCHC 36.0 RDW 17.5 H Plt Count 474 H MPV 11.1 H Immature Gran % Neutrophils % Lymphocytes % Monocytes % Eosinophils % Basophils % Nucleated RBC % Absolute Neutrophils Absolute Lymphocytes Absolute Monocytes Absolute Eosinophils Absolute Basophils RBC Morphology Poikilocytosis PT 14.1 H INR 1.4 H APTT Sodium 130 L Potassium 4.5 Chloride 96 L Carbon Dioxide 24.9 Anion Gap 9.1 BUN 18 Creatinine 0.6 L Est GFR (CKD-EPI 2020) 98.20 Glucose 90 Calcium 7.9 L Total Bilirubin 18.0 H Conjugated Bilirubin AST 370 H ALT 356 H Alkaline Phosphatase 878 H Ammonia Total Protein 5.4 L Albumin 1.8 L Lipase Urine Color Urine Clarity Urine pH Ur Specific Paden Urine Protein Urine Ketones Urine Blood Urine Nitrite Urine Bilirubin Urine Urobilinogen Ur Leukocyte Esterase Urine RBC Urine WBC Ur Epithelial Cells Urine Crystals Urine Bacteria Urine Casts Urine Mucus Urine Other Ur Culture Indicated? Urine Glucose Ethyl Alcohol Time Spent with Patient Time Spent with Patient: 35-49 minutes Time was spent: preparing to see the patient(eg.review tests), ordering medications,tests, procedures, referring, communicating with other health manager managed care, indepentently interpreting results, counseling the patient and care coordination
[2023-10-14] MEDS: Ondansetron 4 MG/2 ML VIAL IVP (14:40)
[2023-10-14] MEDS: Pantoprazole 40 MG VIAL IVP (14:47)
[2023-10-14] MEDS: Normal Saline Flush 10 ML SYR IVP ×2 (14:47→20:29)
[2023-10-14 17:22] LABS: Abs Immature Grans 0.24 10^3/uL (0.0-0.06); HCT 27.1 % (40.0-50.0); HGB 9.6 g/dL (13.5-17.5); MCH 30.2 pg (27.0-33.0); MCHC 35.4 % (32.0-36.0); MCV 85 fL (80-95); MPV 10.7 fL (8.0-11.0); Platelet Count 476 10^3/uL (130-400); RBC 3.18 10^6/uL (4.36-5.78); RDW 17.8 % (11.8-14.1); RDW-SD 49.8 fL
[2023-10-14 17:30] LABS: WBC 26.43 10^3/uL (4.4-10.8)
[2023-10-14 17:45] LABS: Absolute Lymphocyte Count 0.26 10^3/uL (1.2-3.4); Absolute Monocyte Count 0.53 10^3/uL (0.1-0.8); Absolute Neutrophil Count 25.64 10^3/uL (1.2-6.7)
[2023-10-14 17:46] LABS: Diff Comment Manual Differential; Poikilocytes 1+; Polychromasia Present
[2023-10-14] MEDS: Prochlorperazine 10 MG/2 ML VIAL 5 MG IVP (20:29)
[2023-10-15 03:09] VITALS: BP 140/76; PULSE 105; RESP 24; TEMP 36.7; O2SAT 96
[2023-10-15] MEDS: MORPHine 4 MG/ML SYR IVP ×2 (03:22→05:48)
[2023-10-15] MEDS: Ondansetron 4 MG/2 ML VIAL IVP (03:22)
[2023-10-15] MEDS: Normal Saline 1,000 ML 125 ML IV ×2 (05:43→13:32)
[2023-10-15] MEDS: Pantoprazole 40 MG VIAL IVP ×2 (05:47→17:19)
[2023-10-15] MEDS: Prochlorperazine 10 MG/2 ML VIAL 5 MG IVP (05:49)
[2023-10-15 07:19] LABS: Abs Immature Grans 0.36 10^3/uL (0.0-0.06); Absolute Basophil Count 0.05 10^3/uL (0.0-0.2); Absolute Neutrophil Count 23.37 10^3/uL (1.2-6.7); Basophils % 0.2; HCT 24.7 % (40.0-50.0); HGB 8.8 g/dL (13.5-17.5); Immature Grans % 1.4; Lymphocytes % 1.9; MCH 31.2 pg (27.0-33.0); MCHC 35.6 % (32.0-36.0); MCV 88 fL (80-95); MPV 12.1 fL (8.0-11.0); Monocytes % 7.3; Neutrophils % 89.2; Nucleated RBC 0.1 % (0.0-0.3); Platelet Count 470 10^3/uL (130-400); RBC 2.82 10^6/uL (4.36-5.78); RDW 18.6 % (11.8-14.1); RDW-SD 52.5 fL
[2023-10-15 07:22] VITALS: BP 151/70; PULSE 103; RESP 16; TEMP 36.7; O2SAT 92
[2023-10-15 07:43] LABS: ALT 524 U/L (16-63); Albumin 1.7 g/dL (3.4-5.0); Alkaline Phosphatase 896 U/L (46-116); Anion Gap 11.5 mmol/L (3-11); BUN 32 mg/dL (7-18); CO2 21.5 mmol/L (21.0-32.0); CREATININE 1.1 mg/dL (0.70-1.30); Calcium 7.9 mg/dL (8.5-10.1); Chloride 100 mmol/L (98-107); Estimated GFR 68.29 (mL/min/1.73m2); Glucose 136 mg/dL (74-106); Potassium 5.1 mmol/L (3.5-5.1); Sodium 133 mmol/L (136-145)
[2023-10-15 07:49] LABS: AST 836 U/L (15-37)
[2023-10-15 07:50] LABS: Bilirubin, Total 16.5 mg/dL (0.2-1.0)
[2023-10-15 07:54] LABS: Absolute Monocyte Count 1.91 10^3/uL (0.1-0.8); Diff Comment Diff Reviewed; Stomatocytes 2+
[2023-10-15 11:57] VITALS: BP 121/71; PULSE 104; RESP 18; TEMP 36.7; O2SAT 92
[2023-10-15 15:34] VITALS: BP 110/63; PULSE 94; RESP 18; TEMP 36.8; O2SAT 91
--- NOTE | 2023-10-15 16:46 | PGE_ITS ---
Date of Service Date of service: 10/15/23 Time of Service: 16:46 Assessment and Plan Assessment and plan (1) Abdominal malignancy: Status: Acute Assessment and plan: likely GI malignancy either gastric or esophageal but I would a favor gastric w/ local invasion of liver causing obstructive jaundice, also w/ adrenal and bone mets (left iliac); no tumor seen in the pancreas itself. patient wants symptom control but not interested in cancer treatment. continue analgesic control of his pain Will have palliative care and hospice to consult on him tomorrow. I talked to his neighbor Maria Teresa Pack, she and her son and his sister are willing to stay with him in his home until the end. Therefore, it would be reasonable for hospice to consult and follow along as outpatient. (2) Obstructive jaundice due to cancer: Status: Acute (3) Leukocytosis, unspecified: Status: Acute Assessment and plan: likely reactive leukocytosis from his cancer, no fevers and no evidence for acute infection Qualifiers: Leukocytosis type: unspecified Qualified Code(s): D72.829 - Elevated white blood cell count, unspecified (4) Hyponatremia: Status: Acute Assessment and plan: being corrected w/ NS iv fluids., monitor labs (5) Ascites, malignant: Status: Acute Subjective Subjective Interval history since last seen: Patient states that he has no pain. No nausea. His neighbor (Maria Teresa Pack) was here visiting him. She would like to be here when hospice and/or palliative care meet w/ him tomorrow. Exam Narrative Exam Narrative: Juve remains jaundice, icteric, he is in no acute distress, not dyspneic He says that he has been drinking but not really eating much Lungs: clear Heart: RRR Abdomen: distended but nontender, palpably enlarged liver extremities: no edema Objective Last Vital Signs Temp 36.8 C 10/15/23 15:34 Pulse 94 H 10/15/23 15:34 Resp 18 10/15/23 15:34 BP 110/63 10/15/23 15:34 Pulse Ox 91 L 10/15/23 15:34 Laboratory Results - last 24 hr 10/14/23 10/14/23 10/15/23 17:15 Unknown 06:25 WBC 26.43 H* Cancelled 26.20 H* RBC 3.18 L Cancelled 2.82 L Hgb 9.6 L Cancelled 8.8 L Hct 27.1 L Cancelled 24.7 L MCV 85 Cancelled 88 MCH 30.2 Cancelled 31.2 MCHC 35.4 Cancelled 35.6 RDW 17.8 H Cancelled 18.6 H Plt Count 476 H Cancelled 470 H MPV 10.7 Cancelled 12.1 H Immature Gran % 0.0 1.4 Neutrophils % 97.0 89.2 Lymphocytes % 1.0 1.9 Monocytes % 2.0 7.3 Eosinophils % 0.0 0.0 Basophils % 0.0 0.2 Nucleated RBC % 0.0 0.1 Absolute Neutrophils 25.64 H 23.37 H Absolute Lymphocytes 0.26 L 0.50 L Absolute Monocytes 0.53 1.91 H Absolute Eosinophils 0.00 0.00 Absolute Basophils 0.00 0.05 RBC Morphology See Below See Below Polychromasia Present Poikilocytosis 1+ Stomatocytes 2+ Sodium 133 L Potassium 5.1 Chloride 100 Carbon Dioxide 21.5 Anion Gap 11.5 H BUN 32 H Creatinine 1.1 Est GFR (CKD-EPI 2020) 68.29 Glucose 136 H Calcium 7.9 L Total Bilirubin 16.5 H AST 836 H ALT 524 H Alkaline Phosphatase 896 H Total Protein 5.0 L Albumin 1.7 L Time Spent with Patient Time Spent with Patient: <25 minutes Time was spent: preparing to see the patient(eg.review tests), referring, communicating with other health anesthesiologist and critical care, counseling the patient and care coordination
[2023-10-15 19:37] VITALS: BP 143/66; PULSE 107; RESP 16; TEMP 36.8; O2SAT 91
[2023-10-15 23:07] VITALS: BP 117/72; PULSE 109; RESP 16; TEMP 37; O2SAT 93
[2023-10-16 03:42] VITALS: BP 129/77; PULSE 94; RESP 16; TEMP 37; O2SAT 91
[2023-10-16] MEDS: Normal Saline 1,000 ML 80 ML IV (04:24)
[2023-10-16] MEDS: MORPHine 4 MG/ML SYR IVP ×2 (05:21→21:47)
[2023-10-16] MEDS: Normal Saline Flush 10 ML SYR IVP ×2 (05:21→21:46)
[2023-10-16] MEDS: Pantoprazole 40 MG VIAL IVP ×2 (05:21→17:55)
[2023-10-16] MEDS: Ondansetron 4 MG/2 ML VIAL IVP (05:21)
--- NOTE | 2023-10-16 08:38 | W.PALLCONSUL ---
Date of service: 10/16/23 Time of Service: 08:38 History of Present Illness History of Present Illness Chief Complaint: Feels fine, wants to sleep Narrative: 78-year-old man who presented to the ER with weight loss and abdominal pain found to have extensive tumor load in his abdominal viscera. He does not want interventions. He would like to go on hospice. He would like to talk to people about hospice but does not feel up to it at the present time Assessment and Plan Assessment and plan (1) Counseling regarding advanced care planning and goals of care: Status: Acute Assessment and plan: Juve states that he is feeling okay right now. His pain is well-managed. He mostly wants to get back to sleep. I have communicated with JULIETTE Finley NP about seeing him later today. Per nursing his friends will be there and wanted to be there for end-of-life discussions. PFSH All Active Problems (Updated 10/17/23 @ 07:21 by Juliette Finley NP) Uninsured (Acute) Palliative care patient (Acute) Cancer related pain (Acute) Deficit in activities of daily living (ADL) (Acute) Encounter for hospice care (Acute) Physician orders for life-sustaining treatment (POLST) form indicates patient wish for [id number] status (Acute) Advance care planning (Acute) Counseling regarding advanced care planning and goals of care (Acute) Ascites, malignant (Acute) Leukocytosis, unspecified (Acute) Hyponatremia (Acute) Obstructive jaundice due to cancer (Acute) Abdominal malignancy (Acute) Hyperbilirubinemia (Acute) Admission for end of life care (Acute) Pancreatic cancer (Acute) Gastric cancer (Acute) Transaminitis (Acute) Social History Smoking/Tobacco Use Status: Former Tobacco Use Smoking risk assessment performed?: Yes Alcohol Intake: former Drug use: Occasionally Substance use type: marijuana Housing: house Exam Narrative Exam Narrative: Cachectic appearing man who was cooperative but again expressed that he wanted to go back to sleep. Results Last Vital Signs Temp 98.6 F 10/16/23 03:42 Pulse 94 H 10/16/23 03:42 Resp 16 10/16/23 03:42 BP 129/77 10/16/23 03:42 Pulse Ox 91 L 10/16/23 03:42 Labs 10/15/23 06:25 10/15/23 06:25 Labs: MPRESSION: 1. Multilevel ominous findings consistent with diffuse neoplastic disease in the abdomen. There is extensive retroperitoneal lymphadenopathy and ascites. 2. 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 Also occlusion of the splenic vein near the portal vein confluence and vascular compression and narrowing at multiple levels as described above. 3. Other findings as above. 4. 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
[2023-10-16 08:40] VITALS: BP 131/65; PULSE 95; RESP 19; TEMP 36.7; O2SAT 91
[2023-10-16] MEDS: Protein Nutritional Supplement 16 GM 1 OUNCE PACKET PO ×3 (08:47→21:46)
[2023-10-16 11:32] VITALS: BP 127/78; PULSE 97; RESP 18; TEMP 36.4; O2SAT 94
--- NOTE | 2023-10-16 11:58 | CMPROGNOTE_ITS ---
Date of service: 10/16/23 Care Management Progress Note Progress Note Text Progress Note Text: S/O: CM assisted in coordination of Palliative Care consult with Maria Teresa. Maria Teresa shared that Rene sister Heather who lives in [place], intends to arrive tomorrow. Alecia from [facility] updated CM that a Medicaid application has been submitted and [facility] new patient application is currently being worked on. CM following as well. A: Juve is a 78 year old admitted to [facility] 10/13/23. P: Juve will discharge home when medically cleared. He will transport via private vehicle by family. He will be assigned a T-Doc upon discharge for follow up care. CM will continue to follow to assess care needs and assist in coordination of services with Hospice and Palliative Care. SDOH(Care Management) Screening Will the Patient Participate in the Screening?: Yes Do you worry about having a steady place to live?: no Problems where you live: no known problems In the past 12 months, have you had to go without electric, gas, oil or water in your home?: no Have you or anyone in your house had to go without enough food to eat?: no Has lack of transportation kept you from medical appointments or from doing things needed for daily living?: no Has anyone in your support network made you feel unsafe for any reason?: no Social Determinants of Health Comments(SDOH Details): Patient has limited running water and plumbing; patient states has electricity, running water in basement with drainage. Patient uses wood for heat and goes grocery shopping with neighbor Maria Teresa. Health Related Social Needs Health related social needs details: Patient states he gave up his license a few years ago due to impaired vision and failing health. Patient is in the process of filling out living will
[2023-10-16 16:16] VITALS: BP 112/65; PULSE 95; RESP 19; TEMP 36.7; O2SAT 90
--- NOTE | 2023-10-16 16:58 | W.PM.PROGNOT ---
Date of Service Date of service: 10/16/23 Time of Service: 16:59 Assessment and Plan Assessment and plan (1) Abdominal malignancy: Status: Acute Assessment and plan: likely GI malignancy either gastric or esophageal but I would a favor gastric w/ local invasion of liver causing obstructive jaundice, also w/ adrenal and bone mets (left iliac); no tumor seen in the pancreas itself. patient wants symptom control but not interested in cancer treatment. continue analgesic control of his pain As noted above, Juliette Finley met w/ him this afternoon after Dr. Herndon stopped by this morning. he remains interested into entering into hospice. Juliette spoke w/ me, they are hopeful he can get into hospice. However, [facility] wants him to have a PCP. Palliative team will work on this. (2) Obstructive jaundice due to cancer: Status: Acute (3) Leukocytosis, unspecified: Status: Acute Assessment and plan: likely reactive leukocytosis from his cancer, no fevers and no evidence for acute infection Qualifiers: Leukocytosis type: unspecified Qualified Code(s): D72.829 - Elevated white blood cell count, unspecified (4) Hyponatremia: Status: Acute Assessment and plan: being corrected w/ NS iv fluids., monitor labs (5) Ascites, malignant: Status: Acute Subjective Subjective Interval history since last seen: Juve states that he has no pain today. He is eating popcicles, sipping on liquids, no nausea. He remains jaundiced. He met w/ the palliative care team and they will try to get him into hospice so he can return home hopefully tomorrow. Exam Narrative Exam Narrative: Juve is alert, oriented, he is talking w/ some of his neighbors who have agreed to help care for him when he returns home He remains jaundiced Abdomen: protuberant but soft and nontender, palpable hepatomegaly Exremities: no edema Objective Last Vital Signs Temp 36.7 C 10/16/23 16:16 Pulse 95 H 10/16/23 16:16 Resp 19 10/16/23 16:16 BP 112/65 10/16/23 16:16 Pulse Ox 90 L 10/16/23 16:16 Time Spent with Patient Time Spent with Patient: <25 minutes Time was spent: referring, communicating with other health health care manager, counseling the patient and care coordination
[2023-10-16 19:39] VITALS: BP 130/68; PULSE 103; RESP 20; TEMP 36.9; O2SAT 90
[2023-10-16 23:15] VITALS: BP 122/55; PULSE 105; RESP 16; TEMP 36.9; O2SAT 90
[2023-10-17] MEDS: Normal Saline 1,000 ML 80 ML IV (01:26)
[2023-10-17 03:33] VITALS: BP 132/86; PULSE 100; RESP 19; TEMP 36.4; O2SAT 89
[2023-10-17] MEDS: Pantoprazole 40 MG VIAL IVP ×2 (07:02→17:31)
--- NOTE | 2023-10-17 07:04 | W.PALLCONSUL ---
Date of service: 10/16/23 Time of Service: 15:30 History of Present Illness Narrative: Mr. Monson is a 78 y/o M currently inpatient at [facility] 2/2 metastatic abdominal malignancy; PC consult to discuss GOC; present friend/[facility] Maria Teresa Hospital Course: Iona presented to [facility] ED on 10/12 after 2 mos of ongoing weight loss and weakness w/acute spike on 09/24 in pain/weakness; CT scan found likely GI malignancy of gastric or esophageal origin w/invasion of liver, adrenal and bone mets (L iliac); he would like symptom control but no oncology care/work up Iona denies pain or discomfort. Has only required 1 dose of morphine in the last 24 hours. Rates pain right now is okay 2-4 out of 10, it was up 7-8 out of 10 when he presented to the hospital. Pain now in low back, was going into his stomach. Denies arm or leg or head involvement in pain. He denies nausea. He has had limited p.o. intake, ongoing, during hospital has only had clear liquids with protein packets, he is comfortable with this. Reports longstanding dysphagia, will was assuming related to edentulous nature, however now assuming related to esophageal based cancer. He was requiring a 1 person assist due to weakness, transferring to commode. Remain incontinent of urine, has not moved bowels since hospitalization. He gets winded easily due to weakness, recovers with rest, denies air hunger Thomas lives alone in house that is off the grid, no phone, no Internet, no service. She does have a living space on single floor with no steps to get in, however the walk is quite long, unsure if at current abilities he could walk inside home on discharge. neighbor Maria Teresa lives 10-minute walk away, she is has the closest phone. He lives in [place]. 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 He is a spiritual person, he [place] . Maria Teresa's son Mignon and Iona's sister Heather have both agreed to help provide care, Maria Teresa willing to help anyway she can, between the 3 of them there are limited physical abilities to provide full care for Iona. Maria Teresa is working with several neighbors who are also offering to help. He does not have a primary care nor does he have insurance. Care management working with him, worked this morning to get insurance set up, working on establishing primary care with Maria Teresa York hoping for Dr. Melendez. Iona's biggest goal is to return home, he is adamant that he does not want to be transferred, would not want chemotherapy, radiation, surgery. If I cannot move, I am not alive, his preference would be to go when it happens versus pursuing life-sustaining interventions Maria Teresa and Iona Has been working on completing as well which is almost done - They would need a wheelchair, hospital bed and commode and home Called [facility] prior to visit, left message for Vannesa to call back. Plan to review hospice territory sales manager medical signing on his PCP if unable to establish with primary care Assessment and Plan Assessment and plan (1) Abdominal malignancy: Status: Acute Assessment and plan: Likely GI malignancy, gastric or esophageal, within vaginal liver, adrenal and bone mets (L iliac) Not interested in workup or treatment, including radiation, surgery, chemotherapy, exploratory or consult for palliative procedures (2) Obstructive jaundice due to cancer: Status: Acute (3) Gastric cancer: Status: Acute (4) Cancer related pain: Status: Acute Assessment and plan: Controlled at this time, continue morphine as needed Anticipatory increased pain given widespread stenosis throughout abdomen (5) Physician orders for life-sustaining treatment (POLST) form indicates patient wish for [id number] status: Status: Acute Assessment and plan: Reviewed and completed, DNR/DNI, [employer] No feeding tube (6) Uninsured: Status: Acute Assessment and plan: Began process for enrolling this morning (7) Deficit in activities of daily living (ADL): Status: Acute Assessment and plan: Will require significant assistance (8) Encounter for hospice care: Status: Acute Assessment and plan: Reviewed hospice benefit, including DME, staff support, nursing visits, symptom management Reviewed need for establishing caregivers outside of hospice While Iona does not have a PCP, could Hospice Residential Sales Representative fill in this role? Admitting hospice diagnosis suspected gastric malignancy with metastasis, patient declines further disease directed therapy [facility] hospice DME needs: wheelchair, hospital bed, Commode; potentially Sulema in near future (9) Admission for end of life care: Status: Acute Assessment and plan: All treatments directed at Iona should be focused on comfort (10) Palliative care patient: Status: Acute Assessment and plan: PC to continue to follow during this admission through discharge home on hospice plan for check-in Monday, will continue to coordinate with [facility] through care managers Recommend follow-up conversations regarding IV fluids, recommend taper to discontinue (11) Advance care planning: Status: Acute Assessment and plan: Reviewed malignancy, goals of care, treatment preferences, hospice. Completed COLST and healthcare agent forms (Maria Teresa), provided originals and copies to patient and Coy Reviewed caregiver requirements and hospice expectations Spent 45 minutes with ACP Review of Systems Narrative: As per [facility] PFSH All Active Problems (Updated 10/17/23 @ 07:21 by Juliette Finley NP) Uninsured (Acute) Palliative care patient (Acute) Cancer related pain (Acute) Deficit in activities of daily living (ADL) (Acute) Encounter for hospice care (Acute) Physician orders for life-sustaining treatment (POLST) form indicates patient wish for [id number] status (Acute) Advance care planning (Acute) Counseling regarding advanced care planning and goals of care (Acute) Ascites, malignant (Acute) Leukocytosis, unspecified (Acute) Hyponatremia (Acute) Obstructive jaundice due to cancer (Acute) Abdominal malignancy (Acute) Hyperbilirubinemia (Acute) Admission for end of life care (Acute) Pancreatic cancer (Acute) Gastric cancer (Acute) Transaminitis (Acute) Social History Smoking/Tobacco Use Status: Former Tobacco Use Smoking risk assessment performed?: Yes Alcohol Intake: former Drug use: Occasionally Substance use type: marijuana Housing: house Exam Narrative Exam Narrative: General: older adult male, Lying in hospital bed, head of bed elevated, no acute distress Hearing grosslyHEENT: WNL, normocephalic atraumatic, edentulous Resp: Even unlabored at rest, exertional dyspnea with repositioning, recovers immediately. Speaks full sentences with no shortness of breath. No audible wheeze Skin: Jaundice throughout Extremities: No pedal edema Neuro: Awake alert and oriented x 3 Psych: Cooperative, thought process normal, insight judgment normal Results Last Vital Signs Temp 97.5 F L 10/17/23 03:33 Pulse 100 H 10/17/23 03:33 Resp 19 10/17/23 03:33 BP 132/86 10/17/23 03:33 Pulse Ox 89 L 10/17/23 03:33 Labs 10/15/23 06:25 10/15/23 06:25
[2023-10-17 07:50] VITALS: BP 137/70; PULSE 96; RESP 17; TEMP 36.7; O2SAT 93
--- NOTE | 2023-10-17 08:40 | PDOC.CMPRO ---
Date of service: 10/17/23 Time of Service: 08:40 Care Management Progress Note Progress Note Text Progress Note Text: S/O: Juve was lying in bed, visiting with his friends when CM met with him. CM discussed his discharge plan, which is for him to return home with a scheduled admission to hospice at home. CM spoke to Anthony/Placido SORENSONA, who stated that their medical staff specialist is not able to follow the orders, therefore he will need a PCP to support this. CM spoke to Juliette, Palliative care, who is agreeable to following orders for Juve at home until he is connected to a new PCP, in order to support his admission to hospice at home, which is his wish. [facility] also stated that they will not be able to admit him until his insurance is active. AUDRA followed up with [facility]W regarding the ANGELINE application which was submitted yesterday. LEW stated that due to Juve being eligible for MCR, the ANGELINE application will not be processed as an access to care application, which is a state policy. It is being expedited, but it could take up to 45 days to process (which is the standard timeframe for a ANGELINE application). AUDRA spoke to Wilian fowler [facility] in [place], who stated that he will discuss the MCR process with Carlyle Arce [facility], but he is unsure the timeframe. LEW has also contacted Carlyle at [facility] for support. CM reviewed this with Juve with his friends in the room, and they requested that CM contact Maria Teresa who is the point person for coordination of care. CM attempted to call Maria Teresa, but was unable to reach her. CM will continue to follow. A: Juve is a 78 year old admitted to [facility] 10/13/23. P: Juve will discharge home when medically cleared. He will transport via private vehicle by family. He will be assigned a T-Doc upon discharge for follow up care. CM will continue to follow to assess care needs and assist in coordination of services with Hospice and Palliative Care. SDOH(Care Management) Screening Will the Patient Participate in the Screening?: Yes Do you worry about having a steady place to live?: no Problems where you live: no known problems In the past 12 months, have you had to go without electric, gas, oil or water in your home?: no Have you or anyone in your house had to go without enough food to eat?: no Has lack of transportation kept you from medical appointments or from doing things needed for daily living?: no Has anyone in your support network made you feel unsafe for any reason?: no Social Determinants of Health Comments([facility] Details): Patient has limited running water and plumbing; patient states has electricity, running water in basement with drainage. Patient uses wood for heat and goes grocery shopping with neighbor [place]. Health Related Social Needs Health related social needs details: Patient states he gave up his license a few years ago due to impaired vision and failing health. Patient is in the process of filling out living will
[2023-10-17] MEDS: Protein Nutritional Supplement 16 GM 1 OUNCE PACKET PO ×2 (09:46→21:59)
[2023-10-17 11:08] VITALS: BP 132/80; PULSE 99; RESP 18; TEMP 36.6; O2SAT 94
--- NOTE | 2023-10-17 11:34 | W.PM.PROGNOT ---
Date of Service Date of service: 10/17/23 Time of Service: 11:35 Assessment and Plan Assessment and plan (1) Abdominal malignancy: Status: Acute Assessment and plan: likely GI malignancy either gastric or esophageal but I would a favor gastric w/ local invasion of liver causing obstructive jaundice, also w/ adrenal and bone mets (left iliac); no tumor seen in the pancreas itself. patient wants symptom control but not interested in cancer treatment. continue analgesic control of his pain Juliette Finley met w/ the patient and his HCA/Maria Teresa Pack yesterday. See her note for details. She called [facility] and they want him to have a PCP which he does not. Juliette was hoping the caregivers non medical at [facility] would assume his care. AUDRA is working w/ [facility]. (2) Obstructive jaundice due to cancer: Status: Acute (3) Leukocytosis, unspecified: Status: Acute Assessment and plan: likely reactive leukocytosis from his cancer, no fevers and no evidence for acute infection Qualifiers: Leukocytosis type: unspecified Qualified Code(s): D72.829 - Elevated white blood cell count, unspecified (4) Hyponatremia: Status: Acute Assessment and plan: being corrected w/ NS iv fluids., monitor labs (5) Ascites, malignant: Status: Acute Subjective Subjective Interval history since last seen: Patient states that his abdominal pain is improved. No nausea or vomiting this morning. Apparently AUDRA is still working w/ Palliative medicine and [facility] to work out details of getting Juve enrolled. He will not be discharged today due to delays caused by [facility]Hospice. Exam Narrative Exam Narrative: Juve appears comfortable, no pain He remains very jaundiced Abdomen: firm but not rigid, hepatomegaly, nontender Skin jaundiced Objective Last Vital Signs Temp 36.6 C 10/17/23 11:08 Pulse 99 H 10/17/23 11:08 Resp 18 10/17/23 11:08 BP 132/80 10/17/23 11:08 Pulse Ox 94 10/17/23 11:08 Time Spent with Patient Time Spent with Patient: <25 minutes Time was spent: counseling the patient and care coordination
[2023-10-17 16:03] VITALS: BP 136/67; PULSE 95; RESP 20; TEMP 36.7; O2SAT 93
[2023-10-17] MEDS: Normal Saline Flush 10 ML SYR IVP (17:32)
[2023-10-17 19:50] VITALS: BP 118/70; PULSE 104; RESP 17; TEMP 37.1; O2SAT 94
[2023-10-17] MEDS: MORPHine 4 MG/ML SYR IVP (22:01)
[2023-10-17 23:44] VITALS: BP 133/73; PULSE 103; RESP 19; TEMP 36.5; O2SAT 90
[2023-10-18 03:32] VITALS: BP 143/80; PULSE 100; RESP 19; TEMP 36.7; O2SAT 91
[2023-10-18] MEDS: Pantoprazole 40 MG VIAL IVP ×2 (06:25→17:46)
[2023-10-18 08:03] VITALS: BP 117/72; PULSE 70; RESP 18; TEMP 36.2; O2SAT 94
--- NOTE | 2023-10-18 09:44 | CMPROGNOTE_ITS ---
Date of service: 10/18/23 Time of Service: 09:44 Care Management Progress Note Progress Note Text Progress Note Text: S/O: Thomas was lying in bed when CM met with him. He was pleasant and engaged well with CM. Thomas informed CM that he wants to go home. He realizes that he will likely not be eligible for many, if any, community services at home. He has no insurance and no PCP so hospice or even home health services through [facility] is not an option at this time. Thomas does have a close network of friends and neighbors who have committed to providing 09/01 care for him. He wanted to discharge today but has agreed to wait until tomorrow so his friend Maria Teresa can get his house in order. CM contacted the [facility] and obtained a new patient packet which Maria Teresa will help Thomas complete. They hope to get him an appointment within the practice. Thomas's Medicaid application has been submitted (before 10/16) and, if approved, would be retroactive to September 17, covering the cost of hospitalization. Thomas's friends are also actively trying to find a wheelchair, commode and hospital bed for him. A: Juve is a 78 year old admitted to [facility] 10/13/23. P: Juve will discharge home when medically cleared. He will transport via private vehicle by family. He will be assigned a T-Doc upon discharge for follow up care. CM will continue to follow to assess care needs and assist in coordination of services with Hospice and Palliative Care. SDOH(Care Management) Screening Will the Patient Participate in the Screening?: Yes Do you worry about having a steady place to live?: no Problems where you live: no known problems In the past 12 months, have you had to go without electric, gas, oil or water in your home?: no Have you or anyone in your house had to go without enough food to eat?: no Has lack of transportation kept you from medical appointments or from doing things needed for daily living?: no Has anyone in your support network made you feel unsafe for any reason?: no Social Determinants of Health Comments(SDOH Details): Patient has limited running water and plumbing; patient states has electricity, running water in basement with drainage. Patient uses wood for heat and goes grocery shopping with neighbor Maria Teresa. Health Related Social Needs Health related social needs details: Patient states he gave up his license a few years ago due to impaired vision and failing health. Patient is in the process of filling out living will
[2023-10-18 11:51] VITALS: BP 117/70; PULSE 89; RESP 20; TEMP 36; O2SAT 93
--- NOTE | 2023-10-18 12:07 | PGE_ITS ---
Date of Service Date of service: 10/18/23 Time of Service: 12:07 Assessment and Plan Assessment and plan (1) Abdominal malignancy: Status: Acute Assessment and plan: -likely GI malignancy; gastric or esophageal w/ local invasion of liver causing obstructive jaundice, also w/ adrenal and bone mets (left iliac); no tumor seen in the pancreas itself. -patient wants symptom control but not interested in cancer treatment. -continue analgesic control of his pain -Juliette Finley met w/ the patient and his HCA/Maria Teresa Pack yesterday. See her note for details. -She called [facility] and they want him to have a PCP which he does not. Juliette was hoping the medical clerical assistant at [facility] would assume his care. AUDRA is working w/ [facility] . (2) Obstructive jaundice due to cancer: Status: Acute (3) Leukocytosis, unspecified: Status: Acute Assessment and plan: likely reactive leukocytosis from his cancer, no fevers and no evidence for acute infection Qualifiers: Leukocytosis type: unspecified Qualified Code(s): D72.829 - Elevated white blood cell count, unspecified (4) Hyponatremia: Status: Acute Assessment and plan: being corrected w/ NS iv fluids., monitor labs (5) Ascites, malignant: Status: Acute Subjective Subjective Interval history since last seen: Patient states that his pain remains well controlled and that he understands we are working on his discharge plan with hospice care. Exam Narrative Exam Narrative: Chronically ill-appearing older gentleman, blind and disabled laying in bed, somnolent but awakens to verbal stimuli, does not appear to be in any acute distress, heart regular rate rhythm, lungs clear to auscultation bilaterally Objective Last Vital Signs Temp 96.8 F L 10/18/23 11:51 Pulse 89 10/18/23 11:51 Resp 20 10/18/23 11:51 BP 117/70 10/18/23 11:51 Pulse Ox 93 10/18/23 11:51 Time Spent with Patient Time Spent with Patient: >50 minutes Time was spent: preparing to see the patient(eg.review tests), obtaining and/or reviewing separately otained hiistory, ordering medications,tests, procedures, referring, communicating with other health rn progressive care, indepentently interpreting results, counseling the patient and care coordination
--- NOTE | 2023-10-18 12:41 | PHA.REVIEW2 ---
Pharmacy Admission Review Admission Clinical Review Admission Pharmacy Review: (Updated 10/17/23 @ 07:21 by Juliette Finley NP) Uninsured (Acute) Palliative care patient (Acute) Cancer related pain (Acute) Deficit in activities of daily living (ADL) (Acute) Encounter for hospice care (Acute) Physician orders for life-sustaining treatment (POLST) form indicates patient wish for [id number] status (Acute) Advance care planning (Acute) Counseling regarding advanced care planning and goals of care (Acute) Ascites, malignant (Acute) Leukocytosis, unspecified (Acute) Hyponatremia (Acute) Obstructive jaundice due to cancer (Acute) Abdominal malignancy (Acute) Admission for end of life care (Acute) Gastric cancer (Acute) Transaminitis (Acute) No Known Allergies Allergy (Unverified 10/13/23 17:00) Resuscitation Status DNR/DNI Height 5 ft 7 in Weight 63 kg Comments Comments/Follow Ups: Per morning meeting patient is medically cleared. Discharge pending hospice placement Pharmacy Admission Review Renal Dosing Renal Dosing: BUN 32 mg/dL (7-18) H 10/15/23 06:25 Creatinine 1.1 mg/dL (0.70-1.30) 10/15/23 06:25 Medications needing adjustments: Reviewed (CrCl 48 mL/min) List of meds needing interventions: Current medications are okay Anticoagulation Anticoagulation: Hgb 8.8 g/dL (13.5-17.5) L 10/15/23 06:25 Hct 24.7 % (40.0-50.0) L 10/15/23 06:25 Plt Count 470 10^3/uL (130-400) H 10/15/23 06:25 INR 1.4 (0.9-1.1) H 10/14/23 06:30 Creatinine 1.1 mg/dL (0.70-1.30) 10/15/23 06:25 DVT Prophylaxis: Reviewed (None at this time) Opiate Usage Evaluate Pain Scale/Pains Meds: Reviewed (PRN morphine) Scheduled Bowel Reg ordered if on Opiates?: No (PRN Miralax and docusate) Relevant Labs Relevant Labs: Sodium 133 mmol/L (136-145) L 10/15/23 06:25 Potassium 5.1 mmol/L (3.5-5.1) 10/15/23 06:25 Chloride 100 mmol/L (98-107) 10/15/23 06:25 Electrolytes, C-Reactive P, ESR: Reviewed Cardiac Review BP, HR, EF%: Reviewed (HR/BP WNL) QTc Review QTc: Reviewed (No EKG on file) IV to PO Switch IV Medications: Reviewed Home Meds Home Med List reviewed: Reviewed Current Meds Current Medication Order Review: Reviewed Comments Comments/Follow Ups: Per morning meeting patient is medically cleared. Discharge pending hospice placement
[2023-10-18] MEDS: Protein Nutritional Supplement 16 GM 1 OUNCE PACKET PO (14:30)
[2023-10-18 15:24] VITALS: BP 120/77; PULSE 98; RESP 18; TEMP 36.7; O2SAT 95
--- NOTE | 2023-10-18 17:17 | CHAPLAIN ---
Juve was resting in bed when I visited. His friend/neighbor Maria Teresa was with him, and another friend. Juve is dealing with multiple health issues -GI malignancy, jaundice, and bone mets, among other things. He currently doesn't have a PCP or insurance so Care Management is working to line up a PCP for Juve and to get him insurance through the state. 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 He's lived in [place] since the 70s. The plan is for Juve to be discharged home on hospice, while working on getting him a PCP and insurance. I will continue to visit.
[2023-10-18] MEDS: Normal Saline Flush 10 ML SYR IVP (17:46)
--- NOTE | 2023-10-18 19:14 | NUR.NOTE ---
Pt denied pain all day and declined any medication for discomfort.Nursing Note:
[2023-10-18 20:22] VITALS: BP 130/88; PULSE 106; RESP 16; TEMP 36.8; O2SAT 91
[2023-10-18 23:42] VITALS: BP 140/68; PULSE 95; RESP 20; TEMP 36.2; O2SAT 94
[2023-10-19] MEDS: Normal Saline Flush 10 ML SYR IVP (05:35)
[2023-10-19] MEDS: Pantoprazole 40 MG VIAL IVP (05:36)
[2023-10-19 07:31] VITALS: BP 117/84; PULSE 106; RESP 18; TEMP 36.6; O2SAT 95
--- NOTE | 2023-10-19 10:13 | DSE_ITS ---
Date of service: 10/19/23 Time of Service: 10:13 DS: Diagnosis Discharge Diagnosis (1) Abdominal malignancy: Status: Acute Asessment and Plan: -likely GI malignancy; gastric or esophageal w/ local invasion of liver causing obstructive jaundice, also w/ adrenal and bone mets (left iliac); no tumor seen in the pancreas itself. -patient wants symptom control but not interested in cancer treatment. -continue analgesic control of his pain -Juliette [place] met w/ the patient and his HCA/Maria Teresa Pack -She called [facility] and they want him to have a PCP which he does not. Juliette was hoping the medical aide at [facility] would assume his care. AUDRA is working w/ [facility]. -being discharged with PRN PO ativan and liquid morphine (2) Obstructive jaundice due to cancer: Status: Acute (3) Leukocytosis, unspecified: Status: Acute (4) Hyponatremia: Status: Acute (5) Ascites, malignant: Status: Acute Discharge Plan Disposition Patient Disposition: Home Condition: Deteriorating Discharge Details Reason For Visit: Abdominal Malignancy with Obstructive Jaundice and Admit Date/Time: 10/13/23 20:28 Admit Provider: Jah Novak Attending Provider: Jah Novak Primary Care Provider: None,None Hospital Course Hospital Course: Patient initially presented to the hospital because she was not sleeping well due to abdominal pain that was ultimately determined to be secondary to hide he likely had undiagnosed intra-abdominal malignancy. Patient ultimately wished to forego aggressive medical care, wish to be on hospice care. However, patient is uninsured and hospice services were not able to be obtained for the patient. However, he does have family neighbors who are willing to take care of him at end-of-life, therefore patient is being discharged home. Home Meds and New Rx's Prescriptions: New morphine 10 mg/5 mL solution 5 mg PO Q4H PRNQty: 100 0RF lorazepam [Ativan] 1 mg tablet 1 mg PO TID PRNQty: 20 0RF docusate sodium [Colace] 100 mg Capsule 100 mg PO TID PRN PRNQty: 30 0RF ondansetron HCl 4 mg tablet 4 mg PO TID-QID PRNQty: 30 0RF lorazepam [Ativan] 1 mg tablet 1 mg PO TID PRNQty: 30 0RF morphine 10 mg/5 mL solution 5 mg PO Q4H PRNQty: 100 0RF lorazepam [Ativan] 1 mg tablet 1 mg PO TID PRNQty: 20 0RF morphine 10 mg/5 mL solution 5 mg PO Q4H PRNQty: 100 0RF Discharge Instructions Activity:: Activity as Tolerated Equipment/Supplies:: No Equipment Needed Diet:: As Tolerated Discharge Orders Discharge Orders: Discharge Order (Routine); Ordered 10/19/23 Ordered By: Presley Santos DS: Summary Time Spent with Patient providing and/or coordinating discharge services: Greater than 30 minutes Status at Discharge Functional status at discharge: independent ambulation Overall status at discharge: patient is back to baseline Mental Status: mental status grossly normal Speech and Movement: speech and movement normal Mood: congruent mood Affect: normal affect Quality:SDOH Health Related Social Needs: Health related social needs transpo insecurity Health related social needs details Patient states he gave up his license a few years ago due to impaired vision and failing health. Patient is in the process of filling out living will Health related social needs details: Patient states he gave up his license a few years ago due to impaired vision and failing health. Patient is in the process of filling out living will Exam Narrative Exam Narrative: Chronically ill-appearing older gentleman, blind and disabled laying in bed, somnolent but awakens to verbal stimuli, does not appear to be in any acute distress, heart regular rate rhythm, lungs clear to auscultation bilaterally Psych Mental Status: mental status grossly normal Speech and Movement: speech and movement normal Mood: congruent mood Affect: normal affect DS: Data Vitals/I&O Vitals and I&O: Vital Signs Temperature 97.9 F 10/19/23 07:31 Temperature Source Tympanic 10/19/23 07:31 Pulse 106 H 10/19/23 07:31 Pulse Rhythm Regular 10/19/23 06:31 Pulse 98 H 10/13/23 20:45 Respiratory Rate 18 10/19/23 07:31 Respiratory Effort Normal 10/19/23 06:31 Respiratory Depth Normal 10/19/23 06:31 Respiratory Pattern Normal 10/19/23 06:31 Blood Pressure 117/84 10/19/23 07:31 Blood Pressure Mean 86 10/13/23 20:45 Pulse Oximetry 95 10/19/23 07:31 Oxygen Delivery Method Room Air 10/19/23 07:31 Oxygen Flow Rate 0 10/19/23 07:31 Pain Level 0 10/19/23 07:31 Comment Nurse Ilene has been notified. 10/18/23 15:24 Intake & Output 10/18/23 10/19/23 10/19/23 17:59 05:59 17:59 Intake Total 450 / 450 Output Total 300 / 300 25 / 325 150 / 150 Balance 150 / 150 -25 / 125 -150 / -150 Intake: Oral 450 / 450 Output: Urine 300 / 300 25 / 325 150 / 150 Other: Urine Color Brown Light Vannesa Light Vannesa Urine Appearance Clear Urine Odor Strong Strong Comment Did not void when brought to the bathroom. mixed with stool mixed with stool so clarity not able to be evaluated Stool Size Small Small Moderate Stool Characteristics Soft Liquid Soft Liquid Black Voiding Methods Bedside Commode Bedside Commode Bedside Commode [facility] All Active Problems (Updated 10/17/23 @ 07:21 by Juliette Finley NP) Uninsured (Acute) Palliative care patient (Acute) Cancer related pain (Acute) Deficit in activities of daily living (ADL) (Acute) Encounter for hospice care (Acute) Physician orders for life-sustaining treatment (POLST) form indicates patient wish for [id number]-uxsrbkuyijp status (Acute) Advance care planning (Acute) Counseling regarding advanced care planning and goals of care (Acute) Ascites, malignant (Acute) Leukocytosis, unspecified (Acute) Hyponatremia (Acute) Obstructive jaundice due to cancer (Acute) Abdominal malignancy (Acute) Hyperbilirubinemia (Acute) Admission for end of life care (Acute) Pancreatic cancer (Acute) Gastric cancer (Acute) Transaminitis (Acute) Social History Smoking/Tobacco Use Status: Former Tobacco Use Smoking risk assessment performed?: Yes Alcohol Intake: former Drug use: Occasionally Substance use type: marijuana Housing: house Time Spent with Patient Time Spent with Patient: <45 minutes Time was spent: preparing to see the patient(eg.review tests), obtaining and/or reviewing separately otained hiistory, ordering medications,tests, procedures, referring, communicating with other health career services manager, indepentently interpreting results, counseling the patient and care coordination
--- NOTE | 2023-10-19 13:14 | PDOC.CMDIS ---
Date of service: 10/19/23 Time of Service: 13:14 LACE Index Scoring Tool Questions: Length of Stay (in days): 4 - 6 Was the patient admitted via the E.D.?: Yes Comorbidities: Metastatic Solid Tumor E.D. Visits: 0 Answers: Total Score: 12 Risk of Readmission: High Risk Care Management Discharge Plan Reason for Hospitalization: Abdominal malignancy with obstructive jaundice Discharge Plan: Juve returned home today with no new services, as he does not have insurance, therefore he remains ineligible for hospice. His caregivers have found a hospital bed to use in his home, and will be providing his care in his own home. CM contacted [facility], who stated that his prescriptions should be around $30 total, using discount cards that they will provide. His friend, Maria Teresa will be driving him home via private vehicle. [facility] will continue to support his community needs, including obtaining insurance and establishing with a new PCP. He will follow up with palliative care and his discharge plan of care. He is happy to be going home. Patient/Family Education Needs: Review discharge instructions and limitations, discussion of self care needs including ask me three, and continued conversation regarding healthcare goals and wishes. SDOH Health Related Social Needs: Health related social needs transpo insecurity Health related social needs details Patient states he gave up his license a few years ago due to impaired vision and failing health. Patient is in the process of filling out living will Health related social needs: transportation insecurity(Z59.82) Health related social needs details: Patient states he gave up his license a few years ago due to impaired vision and failing health. Patient is in the process of filling out living will Care Management Referrals: [facility] (Insurance support and PCP establishment) and [facility] ([facility]/SHIP support, [facility])
--- NOTE | 2023-10-19 14:59 | CHAPLAIN ---
Thomas has an abdominal malignancy and is jaundice. He wants to go home. He doesn't have a PCP or insurance, so isn't eligible for Hospice benefits. Care Management is sending him home with an insurance application. Thomas and friends and neighbors have agreed to take care of him at home. This morning when I visited, he as trying to sleep. I returned later with a prayer shawl for Thomas. He had a few visitors, so I had a brief visit and left the shawl for him. It's likely he'll be discharged later today.
[2023-10-19 15:34] VITALS: BP 116/65; PULSE 122; RESP 15; TEMP 36.3; O2SAT 94
== END 2023-10-19 17:15 | disposition home or self-care (01) | DRG 947 ==
LOC: ER 20:22 → MS 21:41
PROVIDERS: Internal Medicine; Admitting Provider Family Medicine; Emergency Provider Student in an Organized Health Care Education/Training Program; Visit Provider Family Medicine
DX: G89.3 Neoplasm related pain (acute) (chronic) (principal); K83.1 Obstruction of bile duct; C16.9 Malignant neoplasm of stomach, unspecified; E87.1 Hypo-osmolality and hyponatremia; C79.51 Secondary malignant neoplasm of bone; C78.7 Secondary malignant neoplasm of liver and intrahepatic bile duct; C79.72 Secondary malignant neoplasm of left adrenal gland; C79.71 Secondary malignant neoplasm of right adrenal gland; C77.2 Secondary and unspecified malignant neoplasm of intra-abdominal lymph nodes; R18.0 Malignant ascites; R74.01 Elevation of levels of liver transaminase levels; D72.829 Elevated white blood cell count, unspecified; Z66 Do not resuscitate; Z59.89 Other problems related to housing and economic circumstances; R63.4 Abnormal weight loss; Z68.20 Body mass index [BMI] 20.0-20.9, adult; Z51.5 Encounter for palliative care; F12.90 Cannabis use, unspecified, uncomplicated; I77.1 Stricture of artery
CPT/HCPCS: 00123; 36415; 80053; 83690; 85027; 96361; 96374; 99285; 74177; 80320; 81003; 81015; 82140; 82248; 85025; 85610; 85730; 87086; 99223; 99231; 99232; 99233; 99238; J0780; J2270; J2405; J2470; J3490